=== PATIENT | male | born 1940 | race Caucasian/White ===

== ENCOUNTER 2022-03-16 15:30 | Outpatient (RCR) | payer MEDICARE, SELFPAY | END 2022-03-18 23:59 | LOC: DC 15:30 | PROVIDERS: Referring Provider Internal Medicine; Visit Provider Internal Medicine | DX: E11.9 Type 2 diabetes mellitus without complications (principal) | CPT/HCPCS: 97802; 97803; G0108 ==

== ENCOUNTER 2022-04-25 11:00 | Outpatient (RCR) | payer MEDICARE, SELFPAY | END 2022-05-18 23:59 | LOC: DC 11:00 | PROVIDERS: Referring Provider Internal Medicine; Visit Provider Internal Medicine | DX: E11.9 Type 2 diabetes mellitus without complications (principal) | CPT/HCPCS: 97803; G0109 ==

== ENCOUNTER 2022-11-30 13:34 | Outpatient (RCR) | payer MEDICARE, SELFPAY | END 2022-12-19 23:59 | LOC: DC 13:34 | PROVIDERS: Referring Provider Internal Medicine; Visit Provider Internal Medicine | DX: E11.9 Type 2 diabetes mellitus without complications (principal) | CPT/HCPCS: G0109 ==